=== PATIENT | male | born 1950 | race Caucasian/White ===

== ENCOUNTER 2025-08-09 00:51 | Observation (INO) | payer BC, MEDICARE ==
[2025-08-09] MEDS ORDERED: Sodium Chloride 0.9% 10 ML Syringe FLUSH PRN (01:02)
[2025-08-09 01:11] LABS: BASOPHILS ABSOLUTE AUTO 0.04 10^3/uL (0.00-0.10); BASOPHILS PERCENT AUTO 0.6 % (0.0-1.0); EOSINOPHILS ABSOLUTE AUTO 0.28 10^3/uL (0.10-0.30); EOSINOPHILS PERCENT AUTO 4.3 % (1.0-3.0); IMMATURE GRAN ABSOLUTE AUTO 0.02 10^3/uL (0.00-0.04); IMMATURE GRAN PERCENT AUTO 0.3 % (0.0-0.4); LYMPHOCYTES ABSOLUTE AUTO 1.63 10^3/uL (1.00-4.00); LYMPHOCYTES PERCENT AUTO 25.0 % (20.0-40.0); MEAN PLATELET VOLUME 10.2 fL (7.4-10.4); MONOCYTES ABSOLUTE AUTO 0.74 10^3/uL (0.10-0.80); MONOCYTES PERCENT AUTO 11.3 % (2.0-8.0); NEUTROPHILS ABSOLUTE AUTO 3.82 10^3/uL (2.50-7.00); NEUTROPHILS PERCENT AUTO 58.5 % (50.0-70.0); PLATELET COUNT,PLT 160 10^3/uL (150-400); RED BLOOD CELL COUNT 4.48 10^6/uL (4.50-6.00); RED CELL DISTRIBUTION WIDTH 13.6 % (11.5-14.5); WHITE BLOOD CELL COUNT,WBC 6.53 10^3/uL (5.00-10.00)
[2025-08-09] MEDS ORDERED: Lactated Ringers 1,000 ML IV SCH (01:15)
[2025-08-09 01:31] LABS: ALANINE AMINOTRANSFERASE,ALT 15.0 U/L (14-63); ASPARTATE AMNIOTRANSFERASE,AST 15.0 U/L (15-37); BILIRUBIN TOTAL 0.2 mg/dL (0.2-1.0); BLOOD UREA NITROGEN,BUN 26.0 mg/dL (7-18); CARBON DIOXIDE,CO2 23.2 mmol/L (21.0-32.0); CHLORIDE,CL 109.0 mmol/L (98-107); CREATININE 1.25 mg/dL (0.51-1.17); GLUCOSE RANDOM 123.0 mg/dL (70-140); POTASSIUM,K 3.8 mmol/L (3.5-5.1); PROTEIN TOTAL,TP 6.8 g/dL (6.4-8.2); SODIUM,NA 143.0 mmol/L (136-145)
[2025-08-09 01:32] LABS: EST CRCL DRUG DOSING (CG) 57.71 mL/min; ESTIMATED GFR 60.0 mL/min (>=60)
[2025-08-09] MEDS: Ondansetron 4 MG/2 ML SDV IVPUSH ONE (01:39)
[2025-08-09] MEDS: Metoprolol Tartrate 5 MG/5 ML SDV IVPUSH ONE (01:58)
[2025-08-09] MEDS ORDERED: Ondansetron 4 MG Tab.DIS PO PRN (02:26)
[2025-08-09] MEDS ORDERED: Nitroglycerin 0.4 MG Tab.SL SL PRN (02:26)
== END 2025-08-09 11:55 | disposition home or self-care (01) ==
LOC: KA.ED 00:51 → KA.MS 01:45
PROVIDERS: ADMIT Family Medicine; ATTEND Family Medicine
DX: R07.2 Precordial pain (principal); E78.5 Hyperlipidemia, unspecified; I16.0 Hypertensive urgency; I12.9 Hypertensive chronic kidney disease with stage 1 through stage 4 chronic kidney disease, or unspecified chronic kidney disease; N18.31 Chronic kidney disease, stage 3a; Z88.8 Allergy status to other drugs, medicaments and biological substances; Z79.82 Long term (current) use of aspirin; Z79.899 Other long term (current) drug therapy; Z87.39 Personal history of other diseases of the musculoskeletal system and connective tissue
CPT/HCPCS: 36415; 71045; 80053; 83735; 84484; 85025; 96372; 96374; 96375; 99236-GT; 99285-25; A9270-GY; G0378; J0616; J1650; J2270; J2405; Q3014